=== PATIENT | male | born 1935 | race Caucasian/White ===

== ENCOUNTER 2023-04-23 21:52 | Emergency (ER) | payer BC, OTHER ==
[2023-04-23 21:56] VITALS: BP 153/66; PULSE 73; RESP 18; TEMP 97.7; BMI 24.7
[2023-04-23] MEDS ORDERED: ACETAMINOPHEN 1000 MG/100 ML BAG IVPB ONE (22:34)
[2023-04-23 23:12] LABS: BASO % 0.5 % (0-2.0); EOS % 0.5 % (0-4.5); HEMATOCRIT 36.8 % (35.4-49); HEMOGLOBIN 12.2 GM/dL (11.7-16.9); LYMPH % 16.5 % (8-40); MCH 26.3 pg (25.7-33.7); MCHC 33.2 g/dl (32.0-35.9); MEAN CELL VOLUME 79.1 fl (80-96); MEAN PLT VOLUME 7.2 fl (7.5-11.1); MONO % 4.9 % (3.8-10.2); NEUT % 77.6 % (42.8-82.8); PLATELET COUNT 370 10^3/uL (134-434); RBC 4.64 M/mm3 (4.00-5.60); RDW 14.4 % (11.9-15.9); WHITE BLOOD COUNT 7.8 K/mm3 (4.0-10.0)
[2023-04-23 23:51] LABS: POTASSIUM 3.7 mmol/L (3.5-5.1)
[2023-04-23 23:53] LABS: BLOOD UREA NITROGEN 28.4 mg/dL (7-18); CALCIUM 8.4 mg/dL (8.5-10.1)
[2023-04-23 23:54] LABS: ALBUMIN 3.1 g/dl (3.4-5.0)
[2023-04-23 23:58] LABS: BILIRUBIN,TOTAL 0.7 mg/dL (0.2-1)
[2023-04-24 01:27] LABS: EPI CELLS 19 /uL (0-25.1); HYALINE CASTS 0 /uL (0-3.1); PH,URINE 6.5 (5.0-8.0); URINE APPEARANCE CLEAR; URINE BACTERIA 9 /uL (0-1359); URINE BILIRUBIN NEGATIVE (NEGATIVE); URINE COLOR YELLOW; URINE GLUCOSE (UA) NEGATIVE (NEGATIVE); URINE KETONE NEGATIVE (NEGATIVE); URINE LEUK ESTERASE NEGATIVE (NEGATIVE); URINE NITRITE NEGATIVE (NEGATIVE); URINE PROTEIN 1+ (NEGATIVE); URINE RBC 7 /uL (0-23.9); URINE UROBILINOGEN 0.2 mg/dL (0.2-1.0); URINE WBC 6 /uL (0-25.8)
[2023-04-24] MEDS ORDERED: KETOROLAC TROMETHAMINE 30 MG/1 ML VIAL IM ONE (01:29)
== END 2023-04-24 02:54 | disposition home or self-care (01) ==
LOC: JER 21:52
PROC: 3E033NZ Introduction of Analgesics, Hypnotics, Sedatives into Peripheral Vein, Percutaneous Approach (ICD-10-PCS; principal; 2023-04-23)
DX: N50.812 Left testicular pain (principal); R26.2 Difficulty in walking, not elsewhere classified; N50.82 Scrotal pain
CPT/HCPCS: 36415; 76870-TC; 80053; 81003; 85025; 87086; 87491; 87591; 99284-25